=== PATIENT | female | born 1945 | race African-American/Black ===

== ENCOUNTER 2018-07-16 17:33 | Emergency (ER) | payer OTHER ==
[~2018-07-16] VITALS: Ht 160 cm; Wt 101.2 kg
[2018-07-16 17:41] VITALS: Ht 160 cm; Wt 101.2 kg
[2018-07-16 18:59] VITALS: BP 167/76
== END 2018-07-16 18:59 | disposition home or self-care (01) ==
LOC: ED 17:33
DX: M54.41 Lumbago with sciatica, right side (principal); M25.561 Pain in right knee; J45.909 Unspecified asthma, uncomplicated; I10 Essential (primary) hypertension; E11.9 Type 2 diabetes mellitus without complications
CPT/HCPCS: J1885